=== PATIENT | female | born 1945 | race Caucasian/White ===

== ENCOUNTER 2016-09-02 17:36 | Inpatient (IN) | payer OTHER ==
[~2016-09-02] VITALS: Ht 167.6 cm; Wt 94.3 kg
[2016-09-02 18:23] LABS: HEMOGLOBIN 14.1 gm/dl (12.3-15.3); RED BLOOD COUNT 4.52 M/UL (4.00-5.10); WHITE BLOOD COUNT 11.8 K/UL (4.5-11.0)
[2016-09-02 18:48] LABS: BUN/CREATININE RATIO 15 (0-10)
[2016-09-03] MEDS ORDERED: COZAAR100 MG PO (05:14)
[2016-09-03] MEDS ORDERED: DAILY VITAMIN1 EAC2 PO (05:14)
[2016-09-03] MEDS ORDERED: ASPIR 8181 MG PO (05:14)
[2016-09-03 06:43] LABS: WHITE BLOOD COUNT 9.4 K/UL (4.5-11.0)
[2016-09-03 06:46] LABS: HEMOGLOBIN 10.2 gm/dl (12.3-15.3); RED BLOOD COUNT 3.35 M/UL (4.00-5.10)
[2016-09-03 07:44] LABS: BUN/CREATININE RATIO 18 (0-10)
[2016-09-04 05:06] LABS: HEMOGLOBIN 7.3 gm/dl (12.3-15.3); RED BLOOD COUNT 2.35 M/UL (4.00-5.10); WHITE BLOOD COUNT 12.2 K/UL (4.5-11.0)
--- NOTE | 2016-09-04 14:13 | NUR ---
1300 TRANSFERED TO ICU ROOM 2027
[2016-09-04 14:54] LABS: HEMOGLOBIN 12.2 gm/dl (12.3-15.3)
[2016-09-04 16:14] LABS: HEMOGLOBIN 12.4 gm/dl (12.3-15.3)
--- NOTE | 2016-09-04 18:06 | NUR ---
CALLED TO PCU TO ASSIST WITH PT DECLINING IN CONDITION, PT DECREASED LOC, LOCALIZES PAIN, HYPOTENSIVE SBP 60'S, HR 150'S. PUPILS 2MM REACTIVE BILAT. DR. MARES CALLED TO BEDSIDE, PRBC TRANSFUSION TO BE STARTED STAT AT WOR X4 UNITS. MOVE PT TO ICU.
[2016-09-04 20:18] LABS: HEMOGLOBIN 12.5 gm/dl (12.3-15.3)
[2016-09-05 00:22] LABS: HEMOGLOBIN 11.8 gm/dl (12.3-15.3)
[2016-09-05 04:28] LABS: HEMOGLOBIN 11.7 gm/dl (12.3-15.3); WHITE BLOOD COUNT 15.2 K/UL (4.5-11.0)
[2016-09-05 04:29] LABS: RED BLOOD COUNT 4.12 M/UL (4.00-5.10)
[2016-09-05 08:15] LABS: HEMOGLOBIN 11.2 gm/dl (12.3-15.3)
[2016-09-05 16:05] LABS: HEMOGLOBIN 10.3 gm/dl (12.3-15.3)
[2016-09-06 04:35] LABS: HEMOGLOBIN 8.9 gm/dl (12.3-15.3); RED BLOOD COUNT 3.16 M/UL (4.00-5.10); WHITE BLOOD COUNT 22.8 K/UL (4.5-11.0)
[2016-09-07 03:43] LABS: HEMOGLOBIN 8.5 gm/dl (12.3-15.3); RED BLOOD COUNT 3.03 M/UL (4.00-5.10); WHITE BLOOD COUNT 21.6 K/UL (4.5-11.0)
== END 2016-09-07 23:24 | disposition short-term general hospital (02) | DRG 393 ==
LOC: ER1 17:36 → CCU 23:25 → ZEROF 23:25 → PROG CARE 23:25 → ZEROF 09-03 05:00 → CCU 09-03 05:11 → PROG CARE 09-03 16:34 → CCU 09-04 12:40
PROVIDERS: Emergency Medicine; Internal Medicine; Surgery; ADMIT Internal Medicine
PROC: 30233H1 Transfusion of Nonautologous Whole Blood into Peripheral Vein, Percutaneous Approach (ICD-10-PCS; 2016-09-04)
PROC: 06HN33Z Insertion of Infusion Device into Left Femoral Vein, Percutaneous Approach (ICD-10-PCS; 2016-09-04)
PROC: 0DJ08ZZ Inspection of Upper Intestinal Tract, Via Natural or Artificial Opening Endoscopic (ICD-10-PCS; principal; 2016-09-04 08:30)
PROC: 03HY32Z Insertion of Monitoring Device into Upper Artery, Percutaneous Approach (ICD-10-PCS; 2016-09-05)
DX: K66.1 Hemoperitoneum (principal); N17.0 Acute kidney failure with tubular necrosis; R57.1 Hypovolemic shock; K72.00 Acute and subacute hepatic failure without coma; E87.1 Hypo-osmolality and hyponatremia; K57.92 Diverticulitis of intestine, part unspecified, without perforation or abscess without bleeding; E87.4 Mixed disorder of acid-base balance; D62 Acute posthemorrhagic anemia; K57.32 Diverticulitis of large intestine without perforation or abscess without bleeding; I72.8 Aneurysm of other specified arteries; N30.90 Cystitis, unspecified without hematuria; I10 Essential (primary) hypertension; F17.210 Nicotine dependence, cigarettes, uncomplicated; I95.9 Hypotension, unspecified; Z66 Do not resuscitate; D64.9 Anemia, unspecified; K29.70 Gastritis, unspecified, without bleeding; K20.9 Esophagitis, unspecified; R00.0 Tachycardia, unspecified; E83.51 Hypocalcemia; K26.9 Duodenal ulcer, unspecified as acute or chronic, without hemorrhage or perforation; I49.3 Ventricular premature depolarization; Z88.8 Allergy status to other drugs, medicaments and biological substances; Z82.49 Family history of ischemic heart disease and other diseases of the circulatory system; Z80.9 Family history of malignant neoplasm, unspecified; Z88.5 Allergy status to narcotic agent; Z88.3 Allergy status to other anti-infective agents; Z88.1 Allergy status to other antibiotic agents; Z88.0 Allergy status to penicillin
CPT/HCPCS: ECHO; 36415; 36430; 36600; 70450; 71010; 71250; 74000; 80048; 80053; 81001; 82330; 82550; 82553; 82803; 82962; 83605; 83690; 83735; 83874; 84439; 84443; 84484; 85014; 85018; 85025; 85027; 86850; 86900; 86901; 86920; 87040; 87081; 87086; 87880; 93005; 93306; 94640; 94664; 96361; 96374; 96375; 99285; C1751; C9113; J0295; J1200; J1885; J1956; J2250; J2370; J2405; J2550; J2930; J7030; J7040; J7050; J7070; P9016; Q9962